=== PATIENT | female | born 1945 | race Caucasian/White ===

== ENCOUNTER 2021-05-27 21:45 | Inpatient (IN) | payer MEDICARE, OTHER ==
[~2021-05-27] VITALS: Ht 160 cm; Wt 56.7 kg
--- NOTE | 2021-05-27 22:58 | NUR ---
BIBS. TO ER BED 11. AAOX4. NOT IN RESP DISTRESS. AMBULATORY. CAME IN FOR L WRIST, LOWER BACK AND BILAT KNEE PAIN WHICH HAS BEEN GOING ON FOR THE PAST 3 MONTH WHICH STARETD AFTER SHE HAVE FALLEN. ROM ARE ALL INTACT. PAIN 11/19. AWAITING
--- NOTE | 2021-05-27 23:47 | NUR ---
LAB AT BEDSIDE
--- NOTE | 2021-05-27 23:51 | NUR ---
TAKEN TO RADIOLOGY
[2021-05-28] MEDS ORDERED: ACETAMINOPHEN 325 MG TABLET PO ONE (00:30)
[2021-05-28] MEDS ORDERED: ACETAMINOPHEN 325 MG TABLET ONE (00:47)
--- NOTE | 2021-05-28 00:52 | NUR ---
URINE SENT TO LAB
[2021-05-28 01:00] LABS: BILIRUBIN,URINE Negative (NEGATIVE); COLOR,URINE YELLOW (YELLOW); LEUKOCYTE ESTERASE ,URINE Moderate (NEGATIVE); NITRITE, URINE Negative (NEGATIVE); PH,URINE 5.5 (5.0-8.0); PROTEIN,URINE Negative (NEGATIVE); UGLUCOSE Negative (NEGATIVE); UROBILINOGEN,URINE 0.2 EU/dL (0.2)
--- NOTE | 2021-05-28 01:01 | NUR ---
BLOOD REDRAWN AND SENT TO LAB
[2021-05-28 01:05] LABS: BASOPHILS % (AUTO) 0.6 % (0.0-2.0); EOSINOPHILS % (AUTO) 1.9 % (0.0-6.0); HEMATOCRIT 40 % (33-45); HEMOGLOBIN 13.1 g/dL (11.5-14.8); LYMPHOCYTES # (AUTO) 2.1 K/uL (0.8-4.8); LYMPHOCYTES % (AUTO) 36.8 % (20.0-44.0); MEAN CORPUSCULAR HGB CONC 33 g/dl (31.0-36.0); MEAN CORPUSCULAR VOLUME 95 fL (82-100); MONOCYTES # (AUTO) 0.4 K/uL (0.1-1.30); MONOCYTES % (AUTO) 6.1 % (2.0-12.0); NEUTROPHILS # (AUTO) 3.2 K/uL (1.8-8.9); NEUTROPHILS % (AUTO) 54.6 % (43.0-81.0); PLATELET COUNT (AUTO) 206 K/uL (150-450); RED BLOOD CELL COUNT(AUTO) 4.19 MIL/uL (4.0-5.2); WHITE BLOOD COUNT (AUTO) 5.8 K/uL (4.3-11.0)
[2021-05-28 01:20] LABS: ALANINE AMINOTRANSFERASE 14 U/L (12-78); ALBUMIN 3.8 g/dL (3.4-5.0); ALKALINE PHOSPHATASE 93 U/L (46-116); ASPARTATE AMINOTRANSFERASE 20 U/L (15-37); BILIRUBIN,DIRECT 0.1 mg/dL (0.0-0.2); BILIRUBIN,TOTAL 0.5 mg/dL (0.2-1.0); LIPASE 135 U/L (73-393); TOTAL PROTEIN, SERUM 7.6 g/dL (6.4-8.2)
[2021-05-28 01:23] LABS: BACTERIA,URINE Many /HPF (None Seen); RBC,URINE 0-2 /HPF (0-2); SQUAMOUS EPITHELIAL CELL,UR Moderate /HPF (None Seen)
[2021-05-28 02:09] LABS: CALCIUM, SERUM 8.3 mg/dL (8.5-10.1); CARBON DIOXIDE 21 mmol/L (21-32); CHLORIDE 103 mmol/L (98-107); GLUCOSE 91 mg/dL (74-106); POTASSIUM 3.8 mmol/L (3.5-5.1); SODIUM SERUM 140 mmol/L (136-145); UREA NITROGEN, BLOOD 11 mg/dL (7-18)
[2021-05-28 02:10] LABS: CREATININE 0.8 mg/dL (0.6-1.3)
[2021-05-28] MEDS ORDERED: CEFTRIAXONE 1GM BAG (ER ONLY) 50 ML IV ONE ×2 (02:27→02:30)
[2021-05-28] MEDS ORDERED: IV NS 0.9% 500 ML BAG IV ONE (02:30)
[2021-05-28] MEDS ORDERED: CEPH500T PO (04:05)
--- NOTE | 2021-05-28 04:07 | NUR ---
Patient discharged to home in stable condition. Written and verbal after care instructions given. Patient verbalizes understanding of instruction. IV removed. Catheter intact and site benign. Pressure and 4x4 applied to site. No bleeding noted. PT ambulatory with a steady gait
--- NOTE | 2021-05-28 09:05 | NUR ---
THE PATIENT IS HAVING BREAKFAST. TOLERATES PROVIDED MEAL WELL.
--- NOTE | 2021-05-28 09:59 | NUR ---
RELIEF DRILLER ALEN IS MADE AWARE THAT SON FLORENTINO IS NOT ABLE TO RETAIL DEPARTMENT SUPERVISOR THE PATIENT
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
--- NOTE | 2021-05-28 11:26 | NUR ---
covid swab done and sent to the lab
[2021-05-28] MEDS ORDERED: VERA80TA7 PO (11:29)
[2021-05-28] MEDS ORDERED: ATOR10TA PO (11:29)
[2021-05-28 11:47] LABS: ACETAMINOPHEN < 10 ug/ml (10-30); ALCOHOL, BLOOD < 3 mg/dL (0-0)
--- NOTE | 2021-05-28 15:17 | NUR ---
ROOM 220-A AFTER 4:30
--- NOTE | 2021-05-28 16:30 | NUR ---
REPORT GIVEN TO NURSE ECKERT FROM GPS UNIT
--- NOTE | 2021-05-28 17:12 | NUR ---
THE PATIENT IS TRANSFERED TO [facility] [place] [facility] AND PER POLICY
[2021-05-28] MEDS ORDERED: ACETAMINOPHEN 325 MG TABLET PO PRN (20:00)
[2021-05-28] MEDS ORDERED: MAGNESIUM HYDROXIDE 30 ML UDC PO PRN (20:00)
[2021-05-28] MEDS ORDERED: BLOOD SUGAR DIAGNOSTIC 1 EACH STRIP IN ONE (20:00)
[2021-05-28] MEDS ORDERED: TEMAZEPAM 7.5 MG CAPSULE PO PRN (20:00)
[2021-05-28] MEDS ORDERED: MAG HYDROX/AL HYDROX/SIMETH 30 ML UDC PO PRN (20:00)
[2021-05-28] MEDS ORDERED: LORAZEPAM 0.5 MG TABLET PO PRN (20:00)
[2021-05-28 20:16] VITALS: BP 135/64
--- NOTE | 2021-05-29 03:27 | NUR ---
GPS ADMISSION NOTE, RECEIVED PATIENT FROM [facility]. PATIENT IS RECENTLY HOMELESS FOR 3 WEEKS UNABLE TO CARE FOR SELF. PATIENT ARRIVAL TIME 1700 DURING AM SHIFT. PATIENT ADMITTED ON A 5150 HOLD FOR GRAVELY DISABLED UNABLE TO CARE SELF DUE TO PSYCHIATRIC PROBLEMS. PATIENT WILLINGLY SIGNED PAPERWORK. FACE TO FACE ASSESSMENT COMPLETED. PATIENT IS MOSTLY UPPER SORBIAN SPEAKING WITH LIMITED BELARUSIAN. RESPIRATIONS ARE EVEN AND UNLABORED WITH NO SOB NOTED. PATIENT IS ALERT ORIENTED X3. PATIENT CURRENTLY DENIES ANY SUICIDAL IDEATION AND HOMICIDAL IDEATION AT THIS TIME. PATIENT ADVISED OF HOLD AND PATIENT RIGHTS BOOKLET WAS GIVEN. PATIENT BELONGINGS CHECKED FOR CONTRABAND. SKIN ASSESSMENT COMPLETED, WHICH APPEARED TO BE INTACT. PATIENT ORIENTED TO ROOM, FLOOR, AND STAFF WITH ALL QUESTIONS ANSWERED. PATIENT EDUCATED ON THE USE OF THE CALL OJEDA. PATIENT BED SIDE RAILS UP X2 FOR SAFETY. BED LOCKED, LOW, AND WILL CONTINUE TO MONITOR Q 15 MINUTES FOR SAFETY.
[2021-05-29 08:00] VITALS: BP 114/60
--- NOTE | 2021-05-29 09:58 | NUR ---
CHELO Initial Discharge Plan: Patient reported that she lives with her son Eb located at [address] [place] [address]. CHELO contacted pt's son Eb ([phone]) and left a voicemail to gather collateral. CHELO will coordinate with the MD and treatment team to find appropriate placement.
--- NOTE | 2021-05-29 10:04 | NUR ---
CHELO Family Contact: SW contacted pt's son Eb ([phone]) and left a voicemail to gather collateral.
[2021-05-29] MEDS: CEPHALEXIN MONOHYDRATE 500 MG CAPSULE PO SCH ×2 (10:12→21:38)
[2021-05-29 10:21] LABS: ALBUMIN 3.2 g/dL (3.4-5.0); BILIRUBIN,TOTAL 0.4 mg/dL (0.2-1.0); CREATININE 0.8 mg/dL (0.6-1.3); POTASSIUM 4.1 mmol/L (3.5-5.1); TOTAL PROTEIN, SERUM 6.6 g/dL (6.4-8.2)
[2021-05-29 10:23] LABS: CHOLESTEROL 194 mg/dL (<200); HDL CHOLESTEROL 54 mg/dL (40-60); LDL 112 mg/dL (0-99); TRIGLYCERIDES 108 mg/dL (30-150)
--- NOTE | 2021-05-29 13:04 | NUR ---
CHELO Family Contact: CHELO contacted pt's son Eb ([phone]) and discussed treatment and discharge plan. He stated that pt occasionally tries to leave the house trying to look for her son. He reported she has done this multiple times. SW offered nursing facility, he stated that he will do his own research and see if he can find any other placements. SW will follow up with son.
[2021-05-29] MEDS: SERTRALINE HCL 25 MG TABLET PO SCH (13:50)
[2021-05-29 16:00] VITALS: BP 130/61
--- NOTE | 2021-05-29 18:00 | NUR ---
quiet,keeps to self.started on zoloft today.
[2021-05-29 20:00] VITALS: BP 131/67
[2021-05-30 08:00] VITALS: BP 119/69
[2021-05-30] MEDS: CEPHALEXIN MONOHYDRATE 500 MG CAPSULE PO SCH ×2 (08:51→21:35)
[2021-05-30] MEDS: VERAPAMIL HCL 80 MG TABLET PO SCH (09:18)
--- NOTE | 2021-05-30 11:45 | NUR ---
RN-NOTES NOTED PATIENT VERY ANGRY AND INSISTING OF GOING HOME. STATED" NOTHING WRONG WITH ME, I NEED TO GO HOME" REDIRECTED AND OFFERED ATIVAN . ATIVAN 0.5MG P.O GIVEN PRN ORDER. WILL CONT. MONITORING FOR SAFETY AND BEHAVIOR.
--- NOTE | 2021-05-30 12:45 | NUR ---
RN-NOTES PATIENT LYING IN BED AWAKE,ALERT CALM,NO ACUTE DISTRESS NOTED.
[2021-05-30] MEDS: SERTRALINE HCL 25 MG TABLET PO SCH (12:46)
--- NOTE | 2021-05-30 13:12 | NUR ---
CHELO Family Contact: SW contacted pt's son Eb ([phone]) stated that he will be picking pt up tomorrow 05/31 around 10AM. He reported that he will be taking care of pt and his relatives will be helping. He reported he will be getting caregiving services for pt.
--- NOTE | 2021-05-30 14:00 | NUR ---
CHELO Coordination of Care: Patient will follow up with ([facility] [employer]) Dr. Partida located at [address] [place], [address]; ([phone]) on June 04 at 2PM. Patient's son Eb scheduled the appointment.
[2021-05-30 16:00] VITALS: BP 133/66
--- NOTE | 2021-05-30 19:30 | NUR ---
GPS RN NOTE, RECEIVED PATIENT AWAKE AND IN BED, NO S/S OR COMPLAINTS OF PAIN AT THIS TIME. PATIENT IS DISPLAYING NO S/S OF APPARENT DISTRESS AT THIS TIME. PATIENT BREATHING IS UNLABORED WITH EQUAL RISE AND FALL OF THE CHEST. PATIENT IS ALERT AND ORIENTED X 3 ON ROOM AIR WITH A SPO2 96%. PATIENT IS COMPLIANT WITH MEDICATIONS, CONFUSED AT TIMES, POLITE, COOPERATIVE, AND NEEDS REDIRECTION. PATIENT DENIES SUICIDAL AND HOMICIDAL IDEATIONS AT THIS TIME. PATIENT ASSISTED WITH TURNING AND REPOSITIONING Q2HR AND PRN FOR COMFORT AND CIRCULATION. PATIENT HAS NO NEEDS AT THIS TIME. PATIENT EDUCATED ON THE USE OF THE CALL OJEDA. PATIENT BED SIDE RAILS UP X 2 FOR SAFETY. PATIENT BED IS LOCKED, LOW, WITH BED ALARM ON. WILL CONTINUE TO MONITOR THIS PATIENT Q15 MINUTES WITH THE HELP OF STAFF TO MAINTAIN SAFETY.
[2021-05-30 20:00] VITALS: BP 114/40
[2021-05-30] MEDS ORDERED: ATORVASTATIN 10 MG TABLET PO SCH (22:00)
[2021-05-30 22:35] VITALS: BP 114/40
[2021-05-31 08:00] VITALS: BP 125/63
[2021-05-31 08:19] VITALS: BP 116/72
[2021-05-31] MEDS: VERAPAMIL HCL 80 MG TABLET PO SCH (08:19)
--- NOTE | 2021-05-31 08:20 | NUR ---
SW Discharge Note: Patient will be discharged back home to [facility] located at [address], [place] [address]; ([phone]). Patients ramiro Parson ([phone]) will bean picker pt between 10-11AM. Patient appears to be happy to be going back home. Patient is alert and oriented x3. Patient denies visual/auditory hallucinations. Pt denies suicidal or homicidal ideations. Patient will follow up with ([employer]) Dr. Partida located at [address] [place], [address]; ([phone]) on June 04 at 2PM. Patient was referred to [facility] [address] [place] [address]; . Patient presents with euthymic mood and congruent affect.
[2021-05-31] MEDS: CEPHALEXIN MONOHYDRATE 500 MG CAPSULE PO SCH (08:21)
--- NOTE | 2021-05-31 08:58 | NUR ---
Dr. Cabrera gave an order to D/C hold and D/C back home to son's home and to follow up with psych and medical doctors.
[2021-05-31] MEDS: SERTRALINE HCL 25 MG TABLET PO SCH (12:09)
--- NOTE | 2021-05-31 15:24 | NUR ---
RN-NOTES PATIENT HAD A DISCHARGE ORDER FROM DR. COTTON (PSYCHIATRIST) BALJINDER HAMM ( PRESS WORKER HELPER) MEDICALLY CLEARED PATIENT FOR DISCHARGE. PATIENT WAS DISCHARGED TO HER SON FLORENTINO STOVER. PATIENT DID NOT VERBALIZE SI/HI,DENIES VISUAL/AUDITORY HALLUCINATIONS AT THE TIME OF DISCHARGE. INSTRUCTED TO FOLLOW UP WITH PCP AND PSYCHIATRIST IN A WEEK OR NEEDED OR CALL 911 / GO TO THE NEAREST EMERGENCY ROOM INCASE OF EMERGENCY. PATIENT WAS TAR HEAT EXCHANGER CLEANER BY RAJESH GOOD VIA PRIVATE CAR.PATIENT WAS ASSISTED BY THE CHARGE NURSE AND ONE ACID CUTTER STAFF TO THE LOBBY FOR SAFETY. PATIENT LEFT THE UNIT IN STABLE CONDITION A/O X3 AMBULATORY STEADY GAIT ALL BELONGINGS WAS GIVEN BACK TO THE PATIENT AND RX.
== END 2021-05-31 15:25 | disposition home or self-care (01) | DRG 885 ==
LOC: ER 22:08 → GPS 05-28 15:20
PROVIDERS: ADMIT Psychiatry & Neurology Psychosomatic Medicine; ATTEND Nurse Practitioner Acute Care
DX: F25.0 Schizoaffective disorder, bipolar type (principal); N39.0 Urinary tract infection, site not specified; F29 Unspecified psychosis not due to a substance or known physiological condition; I10 Essential (primary) hypertension; E78.5 Hyperlipidemia, unspecified; F03.90 Unspecified dementia, unspecified severity, without behavioral disturbance, psychotic disturbance, mood disturbance, and anxiety; Z86.73 Personal history of transient ischemic attack (TIA), and cerebral infarction without residual deficits; Z96.652 Presence of left artificial knee joint; M19.90 Unspecified osteoarthritis, unspecified site; E78.00 Pure hypercholesterolemia, unspecified; Z91.81 History of falling; Z73.6 Limitation of activities due to disability; G89.29 Other chronic pain; M85.80 Other specified disorders of bone density and structure, unspecified site; K44.9 Diaphragmatic hernia without obstruction or gangrene; M51.36 Other intervertebral disc degeneration, lumbar region
CPT/HCPCS: 36415; 70450-TC; 71045-TC; 73110; 73502; 73564-TC; 80048-TC; 80053-TC; 80061-TC; 80076-TC; 81001; 82962-TC; 83690-TC; 83880; 84484-TC; 85025-TC; 87081-TC; 87086-TC; C9803; G0480; J0696; J7040